=== PATIENT | male | born 1970 | race Caucasian/White ===

== ENCOUNTER → 2018-11-27 14:07 | Outpatient (CLI) | payer OTHER, SELFPAY ==
[2015-06-30 10:02] VITALS: BMI 28.4
[2018-11-27 15:44] LABS: Absolute Lymphocyte Count 2.15 X10^3/ul (0.83-4.51); Absolute Neutrophil Count 3.4 X10^3/uL (2.0-7.7); Basophil# 0.02 X10^3/uL; Basophil% 0.3 % (0-1); Eosinophil# 0.06 X10^3/uL; Hematocrit 43.1 % (40-54); Hemoglobin 14.1 g/dl (13.0-16.5); Lymphocyte # 2.15 X10^3/ul (4.0); Lymphocyte % 34.4 % (19-41); Mean Corp Hgb Conc 32.7 g/gl (32-36); Mean Corpuscular Hgb 30.7 pg (27.0-32.0); Mean Corpuscular Volume 93.9 fL (80-94); Mean Platelet Vol. 10.3 fl (6.2-12.0); Monocyte# 0.62 X10^3/uL; Monocyte% 9.9 % (0-10); Neutrophil # 3.39 X10^3/uL (2.7-7.7); Neutrophil % 54.2 % (47-70); Platelet Count 253 K/mm3 (150-450); RBC Distribution Width CV 12.9 % (11.6-14.6); RBC Distribution Width SD 43.7 fl (35.1-43.9); Red Blood Count 4.59 M/mm3 (4.6-6.2); White Blood Count 6.3 K/mm3 (4.4-11.0)
[2018-11-27 15:47] LABS: POSITIVE COUNT NO; POSITIVE DIFFERENTIAL NO; POSITIVE MORPHOLOGY NO
[2018-11-27 16:18] LABS: ALB/GLOB Ratio 1.4 RATIO (0.9-2.4); AST(SGOT) 11 U/L (15-37); Alanine Aminotransfer ALT/SGPT 25 U/L (16-61); Albumin, Serum 4.3 g/dL (3.2-5.0); Alkaline Phosphatase 64 U/L (45-117); Anion Gap 10 (5-15); BUN 14 mg/dL (7-18); BUN/Creat Ratio 15.9 RATIO (10-20); Chloride 107 mmol/L (98-107); Creatinine, Serum 0.88 mg/dL (0.70-1.30); EST Glomerular Filtration Rate 99 mL/min (>60); Est Glom Filt Rate - Afr Amer 119 mL/min (>60); Glucose 104 mg/dL (74-106); Potassium 3.9 mmol/L (3.5-5.1); Protein, Total 7.3 g/dL (6.4-8.2); Sodium Level 142 mmol/L (136-145); Thyroid Stim Hormone (TSH) 1.21 uIU/mL (0.358-3.74)
[2018-11-27 16:34] LABS: Vitamin B12 509 pg/mL (211-911)
[2018-11-28 09:21] LABS: Hemoglobin A1c 5.6 % (4.2-6.3)
== END ==
PROVIDERS: Family Provider Family Medicine; PCP Family Medicine; Referring Provider Family Medicine; Visit Provider Family Medicine
DX: E55.9 Vitamin D deficiency, unspecified (principal); R73.09 Other abnormal glucose; R53.83 Other fatigue
CPT/HCPCS: 36415; 80053; 82306; 82607; 83036; 84443; 85025

== ENCOUNTER → 2019-07-04 13:39 | Outpatient (CLI) | payer OTHER, SELFPAY ==
[2019-07-04 16:15] LABS: Vitamin D,25 Hydroxy 29.7 ng/mL (29.95-100.01)
== END ==
PROVIDERS: Family Provider Family Medicine; PCP Family Medicine; Referring Provider Family Medicine; Visit Provider Family Medicine
DX: E55.9 Vitamin D deficiency, unspecified (principal)
CPT/HCPCS: 36415; 82306

== ENCOUNTER → 2020-07-15 16:20 | Outpatient (CLI) | payer OTHER, SELFPAY ==
[2015-06-30 10:02] VITALS: BMI 28.4
[2020-07-15 18:05] LABS: Vitamin D,25 Hydroxy 26.6 ng/mL
== END ==
PROVIDERS: PCP Family Medicine; Referring Provider Family Medicine; Visit Provider Family Medicine
DX: E55.9 Vitamin D deficiency, unspecified (principal)
CPT/HCPCS: 36415; 82306

== ENCOUNTER → 2021-09-21 08:13 | Outpatient (CLI) | payer BC, SELFPAY ==
--- NOTE | 2021-09-21 08:17 | RAD_ITS ---
INDICATION: knee pain EXAMINATION/TECHNIQUE: X-RAY - LEFT XR Knee Complete 4 Views or More 8 VIEWS COMPARISON: None. FINDINGS: No evidence of suprapatellar effusion is seen. No abnormal density in the overlying soft tissues. Mild narrowing of the medial joint space, no significant narrowing of the lateral joint space and the patellofemoral joint space. Mild degenerative bone changes visualized, no evidence of cortical irregularity or lucency to suggest a fracture, no evidence of lytic or sclerotic bone lesion is seen. Unremarkable alignment of the patella bone within the trochlear sulcus. RAD/Knee 4 or More Views IMPRESSION: Mild degenerative bone changes, no acute osseous pathology is seen. Electronically Signed: Milan West MD at 10:03 EST Tel , Service support ,
--- NOTE | 2021-09-21 08:18 | RAD_ITS ---
INDICATION: KNEE PAIN EXAMINATION/TECHNIQUE: X-RAY - RIGHT XR Knee Complete 4 Views or More 8 VIEWS COMPARISON: None. FINDINGS: No evidence of suprapatellar effusion is seen. No abnormal density in the overlying soft tissues. Mild narrowing of the medial and lateral joint spaces, no significant narrowing of the patellofemoral joint space is seen. Mild degenerative bone changes visualized, no evidence of cortical irregularity or lucency to suggest a fracture, no evidence of lytic or sclerotic bone lesion is seen. Unremarkable alignment of the patella bone within the trochlear sulcus. RAD/Knee 4 or More Views IMPRESSION: Mild degenerative bone changes, no acute osseous pathology is seen. Electronically Signed: Milan West MD at 10:01 EST Tel , Service support ,
[2021-09-21 10:33] LABS: Vitamin D,25 Hydroxy 20.1 ng/mL
[2021-09-21 10:52] LABS: ALB/GLOB Ratio 1.1 RATIO (0.9-2.4); AST(SGOT) 19 U/L (15-37); Alanine Aminotransfer ALT/SGPT 39 U/L (16-61); Alkaline Phosphatase 58 U/L (45-117); Anion Gap 6 (5-15); BUN 12 mg/dL (7-18); BUN/Creat Ratio 12.1 RATIO (10-20); Calcium,Total 9.4 mg/dL (8.5-10.1); Chloride 107 mmol/L (98-107); Creatinine, Serum 0.99 mg/dL (0.70-1.30); EST Glomerular Filtration Rate 85 mL/min (>60); Est Glom Filt Rate - Afr Amer 103 mL/min (>60); Globulin 3.5 g/dL (2.2-4.2); Glucose 94 mg/dL (74-106); Potassium 4.2 mmol/L (3.5-5.1); Protein, Total 7.5 g/dL (6.4-8.2); Sodium Level 137 mmol/L (136-145)
== END ==
PROVIDERS: PCP Family Medicine; Referring Provider Family Medicine; Visit Provider Family Medicine
DX: M25.569 Pain in unspecified knee (principal); E55.9 Vitamin D deficiency, unspecified
CPT/HCPCS: 36415; 73564; 80053; 82306

== ENCOUNTER 2021-12-09 06:17 | Day surgery (SDC) | payer BC, SELFPAY ==
[2021-12-09] VITALS (10 sets, daily range): BP systolic 132–161; BP diastolic 80–101; PULSE 54–68; RESP 16; TEMP 36.7–36.8; O2SAT 93–99; BMI 28.8
--- NOTE | 2021-12-09 06:57 | PCM.HP.STD ---
HPI - General HPI Narrative CAROLINE CORRAL, is a 51 M who presents for screening colonoscopy. He has never had a previous one. He has no gastrointestinal symptoms. No family history of colon polyps or colon cancer. He otherwise enjoys good health. 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 He has had no history of DVT. [facility] Medical History (Updated 12/07/21 @ 11:50 by Jemma Wood) Alcohol use Arthritis Cardiology follow-up encounter Depression History of echocardiogram History of stress test Hx of cardiac murmur Hx of histoplasmosis Non-smoker Wears glasses Home Medications sertraline [Zoloft] 50 mg PO DAILY 12/07/21 [History Last Taken 12/09/21] Allergy/AdvReac Type Severity Reaction Status Date / Time No Known Allergies Allergy Verified 12/09/21 06:43 Surgical History (Updated 12/07/21 @ 11:50 by Jemma Wood) Hx of hernia repair Hx of sinus surgery Hx of wisdom tooth extraction Social History Smoking Status: Never smoker ROS Constitutional Constitutional: Reports systems reviewed and no addt'l complaints, except as documented Cardiovascular Cardiovascular: Denies chest pain Respiratory/Chest Respiratory/Chest: Denies shortness of breath at rest Gastrointestinal Gastrointestinal: Denies abdominal pain, change in bowel habits, hematochezia or melena Vital Signs Vital Signs Vital Signs: 12/09/21 06:45 Temperature 98.2 F Temperature Source Temporal Pulse Rate 54 L Respiratory Rate 16 Respiratory Pattern Normal Blood Pressure 139/87 H Blood Pressure Mean 104 Blood Pressure Source Monitor Blood Pressure Position Semi-Fowlers Blood Pressure Location Right Arm Pulse Ox 96 Oxygen Delivery Method Room Air Weight Weight: 206 lb 9.17 oz Body Mass Index (BMI) 28.8 Physical Exam Const alert, oriented x3 and no apparent distress General Appearance: cooperative and comfortable Eyes General Eye: normal appearance of both eyes Neck General: normal visual inspection Chest inspection of chest normal Resp Effort and Inspection: able to speak in complete sentences and symmetric chest movement Auscultation: clear to auscultation bilaterally Cardio regular rate and regular rhythm GI soft to palpation, non-tender and non-distended Extremity no calf tenderness Neuro oriented x3 Psych thought process normal Results Lab / Micro Data Micro: Microbiology 12/08/21 08:25 Interface Orders SARS-CoV-2 Antigen (Rapid) - Final Assessment & Plan Assessment/Plan (1) Encounter for screening for malignant neoplasm of colon: PLAN: The patient presents via open access today. Plan to proceed with a screening colonoscopy with possible biopsy or polypectomy as indicated. He is aware of the technique, benefit, risk, alternatives. He has had an opportunity to ask and have questions answered. We will proceed at his discretion. Kaz Christensen M.D., F.A.C.S.
[2021-12-09] MEDS: Lactated Ringers 1,000 ML 30 ML IV (06:59)
[2021-12-09] MEDS: Midazolam 5 MG/ML Syringe (07:15)
--- NOTE | 2021-12-09 07:30 | COLBX_PTH ---
PATIENT: CAROLINE CORRAL LOC: EN U#:[id number] AGE/SX: 51/M ROOM: RE12/09/[address]: Dr. Kaz Christensen MD : 1970 BED: DIS: 12/09/2021 SPEC #: [id number] RECD: 12/09/21 12:24 STATUS: JODY ALEX #: [id number] GIL: 12/09/21 07:[address]: Kaz Christensen DEPT: SURGICAL PATHOLOGY RECD BY: Fanny Hurd ENTERED: 12/09/21 13:19 SP TYPE: COLON BX OTHR DR: Dr. Moi Durham MD Tissues: Cecum, NOS Procedures: Surgery Specimen Level IV HEADER OPERATION: Colonoscopy ? open access (MOD) PRE-OP DIAGNOSIS: Screening TISSUE SUBMITTED: Cecal biopsy MICROSCOPIC DIAGNOSIS Cecal polyp, biopsy: Tubular adenoma. AM:theodora 12/12/2021 MICROSCOPIC DESCRIPTION Slides are reviewed. GROSS DESCRIPTION Received in fixative is one container labeled with the patient's name and designated cecal biopsy. The specimen consists of one irregular fragment of [place] soft tissue that measures 0.6 x 0.5 x 0.1 cm. The specimen is totally submitted in one cassette. / AM:theodora 12/09/2021 TC:5 CPT: 72235
--- NOTE | 2021-12-09 08:06 | OP.COLON_ITS ---
Patient Name: Ramiro Majano Procedure Date: 12/09/2021 7:47 AM Date of : 1970 Age: 51 Procedure: Colonoscopy Indications: Screening for colorectal malignant neoplasm Providers: Kaz Christensen MD Referring MD: Kaz Christensen MD Medicines: Midazolam 5 mg IV, Meperidine 100 mg IV Patient Profile: Last Colonoscopy: none. The patient's first colonoscopy is today. Complications: No immediate complications. Procedure: Pre-Anesthesia Assessment: - Prior to the procedure, a History and Physical was performed, and patient medications and allergies were reviewed. The patient's tolerance of previous anesthesia was also reviewed. The risks and benefits of the procedure and the sedation options and risks were discussed with the patient. All questions were answered, and informed consent was obtained. Prior Anticoagulants: The patient has taken no previous anticoagulant or antiplatelet agents. ASA Grade Assessment: II - A patient with mild systemic disease. After reviewing the risks and benefits, the patient was deemed in satisfactory condition to undergo the procedure. After I obtained informed consent, the scope was passed under direct vision. Throughout the procedure, the patient's blood pressure, pulse, and oxygen saturations were monitored continuously. The pediatric colonoscope was introduced through the anus and advanced to the cecum, identified by appendiceal orifice and ileocecal valve. The colonoscopy was performed without difficulty. The patient tolerated the procedure well. The quality of the bowel preparation was good. The ileocecal valve and the appendiceal orifice were photographed. Moderate Sedation: Moderate (conscious) sedation was personally administered by the endoscopist. The following parameters were monitored: oxygen saturation, heart rate, blood pressure, and response to care. Total physician intraservice time was 15 minutes. Scope In: 7:50:10 AM Scope Withdrawal Time 0 hours 6 minutes 5 seconds Scope Out: 8:01:06 AM Total Procedure Duration Time 0 hours 10 minutes 56 seconds Findings: The perianal and digital rectal examinations were normal. A 3 mm polyp was found in the cecum. The polyp was sessile. The polyp was removed with a cold biopsy forceps. Resection and retrieval were complete. A few diverticula were found in the sigmoid colon. The exam was otherwise without abnormality. Impression: - One 3 mm polyp in the cecum, removed with a cold biopsy forceps. Resected and retrieved. - Diverticulosis in the sigmoid colon. - The examination was otherwise normal. Recommendation: - Discharge patient to home. - Resume previous diet. - Continue present medications. - Repeat colonoscopy in 5 years for surveillance based on pathology results. - Telephone my office for pathology results in 1 week. Procedure Code(s): --- Professional --- 85099, Colonoscopy, flexible; with biopsy, single or multiple 30564, 59, Moderate sedation services provided by the same physician or other qualified health skin care therapist performing the diagnostic or therapeutic service that the sedation supports, requiring the presence of an independent trained observer to assist in the monitoring of the patient's level of consciousness and physiological status; initial 15 minutes of intraservice time, patient age 5 years or older Diagnosis Code(s): --- Professional --- Z12.11, Encounter for screening for malignant neoplasm of colon D12.0, Benign neoplasm of cecum K57.30, Diverticulosis of large intestine without perforation or abscess without bleeding CPT copyright 2017 [employer]. All rights reserved. The codes documented in this report are preliminary and upon treating machine operator review may be revised to meet current compliance requirements. Kaz Christensen MD 12/09/2021 8:05:29 AM This report has been signed electronically. Number of Addenda: 0 Note Initiated On: 12/09/2021 7:47 AM
--- NOTE | 2021-12-09 08:07 | OP.CCLET_ITS ---
12/09/2021 Moi Durham [address] [place] [address] Re : Colonoscopy procedure for Ramiro Majano Dear Dr. Durham This procedure was performed on Thursday, December 09, 2021. My impressions and recommendations are as follows: Impressions : - One 3 mm polyp in the cecum, removed with a cold biopsy forceps. Resected and retrieved. - Diverticulosis in the sigmoid colon. - The examination was otherwise normal. Recommendations : - Discharge patient to home. - Resume previous diet. - Continue present medications. - Repeat colonoscopy in 5 years for surveillance based on pathology results. - Telephone my office for pathology results in 1 week. My findings are described in the full procedure note, which is enclosed. If I can be of further assistance, please feel free to contact me at Doctor phone number(s): Work: . Sincerely, Kaz Christensen MD 12/09/2021 8:05:29 AM This report has been signed electronically.
== END 2021-12-09 23:59 | disposition home or self-care (01) ==
LOC: EN 06:18 → AC 06:20
PROVIDERS: PCP Family Medicine; Referring Provider Surgery; Visit Provider Surgery
PROC: 0DJD8ZZ Inspection of Lower Intestinal Tract, Via Natural or Artificial Opening Endoscopic (ICD-10-PCS; CPT 45378; principal; 2021-12-09 07:25)
DX: Z12.11 Encounter for screening for malignant neoplasm of colon (principal); D12.0 Benign neoplasm of cecum; K57.30 Diverticulosis of large intestine without perforation or abscess without bleeding; F32.A Depression, unspecified; Z79.899 Other long term (current) drug therapy
CPT/HCPCS: 45380; 87426; 88305; 99152; 99153; C9803; J7120

== ENCOUNTER → 2022-06-29 | Outpatient (CLI) | payer BC, SELFPAY ==
[2022-06-29 10:07] LABS: Hematocrit 43.6 % (40-54); Hemoglobin 14.5 g/dL (13.0-16.5); Mean Corp Hgb Conc 33.3 g/dL (32-36); Mean Corpuscular Hgb 31.5 pg (27.0-32.0); Mean Corpuscular Volume 94.6 fL (80-94); Mean Platelet Vol. 9.7 fl (6.2-12.0); Platelet Count 253 K/mm3 (150-450); RBC Distribution Width CV 13.2 % (11.6-14.6); RBC Distribution Width SD 45.7 fl (35.1-43.9); Red Blood Count 4.61 M/mm3 (4.6-6.2); White Blood Count 5.4 K/mm3 (4.4-11.0)
[2022-06-29 10:19] LABS: ALB/GLOB Ratio 1.1 RATIO (0.9-2.4); AST(SGOT) 14 U/L (15-37); Alanine Aminotransfer ALT/SGPT 27 U/L (16-61); Alkaline Phosphatase 51 U/L (45-117); Anion Gap 5 (5-15); BUN 12 mg/dL (7-18); BUN/Creat Ratio 12.8 RATIO (10-20); Calcium,Total 9.2 mg/dL (8.5-10.1); Chloride 106 mmol/L (98-107); Cholesterol 169 mg/dL (200); Creatinine, Serum 0.94 mg/dL (0.70-1.30); EST Glomerular Filtration Rate 90 mL/min (>60); Est Glom Filt Rate - Afr Amer 109 mL/min (>60); Globulin 3.6 g/dL (2.2-4.2); Glucose 95 mg/dL (74-106); High Density Lipoprotein 35 mg/dL; Potassium 4.2 mmol/L (3.5-5.1); Protein, Total 7.6 g/dL (6.4-8.2); Sodium Level 139 mmol/L (136-145); Triglycerides 118 mg/dL; Very Low Density Lipoprotein 24 mg/dL (5-40)
[2022-06-29 10:34] LABS: Vitamin D,25 Hydroxy 35.4 ng/mL
== END | disposition home or self-care (01) ==
LOC: MFPLAB 08:47
PROVIDERS: PCP Family Medicine; Referring Provider Family Medicine; Visit Provider Family Medicine
DX: Z00.00 Encounter for general adult medical examination without abnormal findings (principal); E55.9 Vitamin D deficiency, unspecified
CPT/HCPCS: 36415; 80053; 80061; 82306; 85027

== ENCOUNTER 2023-09-12 09:26 | Outpatient (CLI) | payer BC, SELFPAY ==
[2023-09-12 10:21] LABS: Absolute Lymphocyte Count 2.22 X10^3/uL (0.83-4.51); Absolute Neutrophil Count 3.6 X10^3/uL (2.0-7.7); Basophil# 0.02 X10^3/uL; Basophil% 0.3 % (0-1); Eosinophil# 0.06 X10^3/uL; Eosinophils% 0.9 % (0-5); Hematocrit 44.8 % (40-54); Hemoglobin 15.2 g/dL (13.0-16.5); Lymphocyte # 2.22 X10^3/ul (0.83-4.51); Lymphocyte % 34.6 % (19-41); Mean Corp Hgb Conc 33.9 g/dL (32-36); Mean Corpuscular Hgb 32.1 pg (27.0-32.0); Mean Corpuscular Volume 94.7 fL (80-94); Mean Platelet Vol. 9.2 fl (6.2-12.0); Monocyte# 0.51 X10^3/uL; NRBC Flagged by Analyzer 0 % (0-5); Neutrophil # 3.58 X10^3/uL (2.7-7.7); Neutrophil % 55.9 % (47-70); Platelet Count 277 K/mm3 (150-450); RBC Distribution Width CV 13.2 % (11.6-14.6); RBC Distribution Width SD 46.5 fl (35.1-43.9); Red Blood Count 4.73 M/mm3 (4.6-6.2); White Blood Count 6.4 K/mm3 (4.4-11.0)
[2023-09-12 10:46] LABS: Vitamin D,25 Hydroxy 21.1 ng/mL
[2023-09-12 11:17] LABS: ALB/GLOB Ratio 1.2 RATIO (0.9-2.4); AST(SGOT) 22 U/L (15-37); Alanine Aminotransfer ALT/SGPT 48 U/L (16-61); Albumin, Serum 4.2 g/dL (3.2-5.0); Alkaline Phosphatase 57 U/L (45-117); Anion Gap 4 (5-15); BUN 11 mg/dL (7-18); BUN/Creat Ratio 11.9 RATIO (10-20); Calcium,Total 9.2 mg/dL (8.5-10.1); Chloride 105 mmol/L (98-107); Cholesterol 225 mg/dL (200); Creatinine, Serum 0.92 mg/dL (0.70-1.30); EST Glomerular Filtration Rate 91 mL/min (>60); Est Glom Filt Rate - Afr Amer 110 mL/min (>60); Globulin 3.5 g/dL (2.2-4.2); Glucose 98 mg/dL (74-106); High Density Lipoprotein 37 mg/dL; Potassium 4.2 mmol/L (3.5-5.1); Protein, Total 7.7 g/dL (6.4-8.2); Sodium Level 136 mmol/L (136-145); Triglycerides 200 mg/dL; Very Low Density Lipoprotein 40 mg/dL (5-40)
== END 2023-09-12 23:59 | disposition home or self-care (01) ==
LOC: MFPLAB 09:26
PROVIDERS: PCP Family Medicine; Visit Provider Family Medicine
DX: E55.9 Vitamin D deficiency, unspecified (principal); R03.0 Elevated blood-pressure reading, without diagnosis of hypertension; Z91.89 Other specified personal risk factors, not elsewhere classified
CPT/HCPCS: 36415; 80053; 80061; 82306; 85025

== ENCOUNTER 2023-12-12 05:54 | Day surgery (SDC) | payer BC, SELFPAY ==
--- NOTE | 2023-12-12 06:10 | EKG12_ITS ---
Test Reason : PRE-OP Blood Pressure : / mmHG Vent. Rate : 056 BPM Atrial Rate : 056 BPM P-R Int : 166 ms QRS Dur : 086 ms QT Int : 388 ms P-R-T Axes : 031 047 059 degrees QTc Int : 374 ms Sinus bradycardia Otherwise normal ECG No previous ECGs available Confirmed by Renny Ignacio ([id number]), development editor NETO DAVIS ([id number]) on 12/14/2023 8:39:24 AM Referred By: Marbin Tomlinson Confirmed By:Renny Ignacio
[2023-12-12 06:28] VITALS: BP 131/88; PULSE 61; RESP 16; TEMP 37.2; O2SAT 97; BMI 29.5
[2023-12-12] MEDS: Lactated Ringers 1,000 ML 15 ML IV (06:41)
--- NOTE | 2023-12-12 06:45 | PCM.HP.BLA ---
History and Physical Date of Admission: 12/12/23 Intake Vital Signs 12/09/2205:45 11/26/2407:32 Height 5 ft 11 in 5 ft 11 in Weight: 217 lb BMI 30.2 BP 139/88 H Blood Pressure Location Rt brachial Position Sitting Respiration 16 Intake Visit Reasons: Umbilical Hernia Chief Complaint: umbilical hernia Attendant Honor Bar Required: No Is patient in pain?: Yes (umbilicus) Allergies amphotericin B Allergy (Mild, Verified 11/26/23 08:33) Other Medications sertraline 50 mg tablet (Zoloft) 50 mg PO DAILY 12/07/21 [History Confirmed 12/09/21] ergocalciferol (vitamin D2) 1,250 mcg (50,000 unit) capsule PO 11/26/23 [History Confirmed 11/26/23] PFSH Medical History Alcohol use Arthritis Cardiology follow-up encounter Depression History of echocardiogram History of stress test Hx of cardiac murmur Hx of histoplasmosis Non-smoker Wears glasses Surgical History Hx of hernia repair Hx of sinus surgery Hx of wisdom tooth extraction Family History (Updated 11/26/23 @ 08:32 by Rosa Briscoe) Father Cancer Social History (Updated 11/26/23 @ 08:32 by Rosa Briscoe) Smoking Status: Never smoker alcohol intake: current HPI HPI HPI: Patient is a 53-year-old male here with a small umbilical hernia. Patient would like it repaired before he gets too large and require mesh. Patient reports no nausea or vomiting. He is having some pain in the area. This been going on for couple weeks. ROS General General: No weight change, appetite, fatigue, colon cancer, breast cancer or weakness HEENT HEENT: No difficulty swallowing, eye injury, eye surgery, swollen glands or hoarseness Endo Endocrine: No thyroid disease, diabetes mellitus, thyroid cancer, Hair loss, heat intolerance or cold intolerance Skin Skin: No rash or changing moles Breast Breast: No left breast lump, right breast lump, nipple discharge, breast pain, abnormal mammogram, abnormal US or breast enlargement Musc Musculoskeletal: No back problems, arthritis, rheumatoid arthritis, gout or joint pain Cardio Cardiovascular: Yes murmur; No pacemaker, heart disease, atrial fibrillation, high blood pressure, heart attack, heart stent, palpitations, shortness of breat with exertion or chest pain Psych Psychiatric: No depression, anxiety or hearing voices Resp Respiratory: No shortness of breath, No sleep apnea, No cough, No COPD, No asthma, No emphysema and No wheezing Gastro Gastrointestinal: No abdominal pain, No nausea or vomiting, No diarrhea, No constipation, No blood in stool, No acid reflux, No hemorrhoids, No ulcers, No gallbladder problem and No black,tarry stools Sriram Hematologic: No blood thinners, No blood disorders, No bleeding, No anemia and No blood clots Neuro Neurologic: No system reviewed and no additional complaints, except as documented, No as per HPI, No abnormal gait, No abnormal hearing, No abnormal movements, No abnormal speech, No behavioral changes, No burning sensations, No confusion, No convulsions, No disequilibrium, No dizziness, No localized weakness, No frequent falls, No headache(s), No lack of coordination, No loss of vision, No memory loss, No numbness, No other visual disturbances, No radicular pain, No restless legs, No sensory deficit, No syncope, No tingling, No tremor(s), No weakness and No other Exam Const General: cooperative Orientation: alert and oriented x3 HENMT Head: normal to inspection Neck Neck: normal visual inspection and full ROM Chest Chest palpation & inspection: normal inspection of the chest Resp Effort & Inspection: normal respiratory effort Auscultation: clear to auscultation bilaterally Cardio Rate: regular rate Rhythm: regular rhythm GI Inspection: non-distended Palpation: soft, hernia umbilical and nontender Skin General: no rashes or lesions noted Neuro General: patient alert and patient oriented x3 Extrem General: full ROM Psych Appearance: grossly normal Mental Status: mental status grossly normal Assessment and Plan Assessment and Plan (1) Umbilical hernia: Status: Acute Qualifiers: Obstruction and gangrene presence: without obstruction or gangrene Qualified Code(s): K42.9 - Umbilical hernia without obstruction or gangrene Plan: The patient has a reducible umbilical hernia which is causing him pain but he would like it repaired before he gets large enough that he would need mesh. I discussed suture repair with him in detail. I discussed that if the hernia was over a centimeter in diameter I would recommend mesh but the patient would like to avoid if possible. I discussed the risks including but not to bleeding, infection, injury underlying organs such as bowel or fat. Patient understands the risks and is willing to proceed. Marbin Tomlinson MD Pager: [facility] [address] [place] [address], [address] [place] [address] Office: I have examined the patient and the H&P has been reviewed. There are no clinical changes since date of exam.
[2023-12-12] MEDS: Cefazolin 2 GM in 0.9% Normal Saline (100mL Bag) 100 ML IV (07:19)
[2023-12-12] MEDS: Lidocaine 1% (20 ml mdv) 20 ML Vial (07:33)
[2023-12-12] MEDS: Bupivacaine Mpf 0.5% 30 ML VIAL (07:33)
[2023-12-12 07:50] VITALS: BP 131/88; BP 176/103; PULSE 82; RESP 16; TEMP 36.8; O2SAT 99
--- NOTE | 2023-12-12 07:50 | PCM.OPRPT ---
Report of Operation Date of Procedure: 12/12/23 Pre-Operative Diagnosis: Umbilical hernia less than 3 cm Post-Operative Diagnosis: Same Surgery/Procedure Performed:: Umbilical hernia repair less than 3 cm Type of Anesthesia: Local MAC Estimated Blood Loss (mL): 2 Description of Procedure: Patient was brought back to the operating room and MAC anesthesia was induced. The abdomen was prepped and draped in usual sterile fashion. A curvilinear incision was marked superior to the umbilicus and then injected with local anesthetic. Incision was made with a scalpel and deepened to the fascia. The hernia was dissected free from the umbilical stalk sharply and then the small amount of fat in the hernia was reduced. The hernia defect measured less than 1 cm. An 0 Nurolon suture was used to reapproximate the diastases superior to the hernia to reduce tension. There was another 2 interrupted 0 Nurolon sutures used to close the hernia defect. The area was irrigated and suctioned dry and hemostasis was obtained using electrocautery. The skin was reapproximated using interrupted 3-0 Vicryl sutures. Steri-Strips and bandages were applied. Patient was awoken and brought to PACU in stable condition and tolerated the procedure well. Grafts/Implants Used: No mesh used Admit VTE Documentation VTE Mechan Device Prophylaxis: SCD's
--- NOTE | 2023-12-12 07:52 | DCINST_ITS ---
Discharge Instructions Procedure Hernia Diet Discharge Diet: Light diet - advance as tolerated Activity Discharge Activity: May Not Drive (for 2-3 days) and May Shower (with the bandage in place 1-2 days after surgery.) Lifting Restrictions: 15 pounds for 2 weeks. Additional Activity Instructions:: Climbing stairs is fine, walking is encouraged. Sitting in bed may be uncomfortable. Sitting up using your lateral muscles (sitting up sideways) is usually more comfortable. Do not drive, work heavy equipment of sign legal documents for 24 hours. Alternate ibuprofen and Tylenol for pain control. If these are not controlling the pain please call my office. Dressing / Incision Call your doctor if your incision/area has: Continuous Slow Oozing, Sudden Increased Bleeding, Increased Pain/ Swelling, Increased Redness and Foul Smelling Discharge Call your doctor if you observe: Fever of 101 or Higher Suture Line Care: Avoid Pulling/Pushing and Avoid Pinching/Bending Remove Dressing in: 2 days (Remove clear bandages in 2 days, remove Steri-Strips in 7 to 10 days.) Follow Up Care Please Follow Up With: Marbin Tomlinson MD When: Please call to schedule 2 week follow up appointment. [phone] Test Results: Test results from this visit will be discussed in further detail at your follow- up appointment, if applicable. Discharge Plan Admission Attending Provider: Marbin Tomlinson Primary Care Provider: Moi Durham Discharge Orders/Prescriptions Prescriptions: No Action sertraline [Zoloft] 50 mg Tablet 50 mg PO DAILY loratadine [Allergy Relief (loratadine)] 10 mg tablet 10 mg PO DAILY PRN (Reason: allergic symptoms) Referrals / Follow Up: Moi Durham MD [Primary Care Provider] - Disposition Disposition (needs filled in before D/C Order can be placed): Home, Self Care
[2023-12-12 07:55] VITALS: BP 131/88; BP 180/98; PULSE 82; RESP 16; O2SAT 99
[2023-12-12 08:00] VITALS: BP 131/88; BP 158/102; PULSE 79; RESP 16; O2SAT 95
[2023-12-12 08:05] VITALS: BP 131/88; BP 147/97; PULSE 78; RESP 16; TEMP 37.1; O2SAT 98
[2023-12-12 08:56] VITALS: BP 131/88
== END 2023-12-12 09:04 | disposition home or self-care (01) ==
LOC: SDC 05:55 → AC 05:55
PROVIDERS: PCP Family Medicine; Referring Provider Surgery; Visit Provider Surgery
PROC: (CPT 49591; principal; 2023-12-12 07:15)
DX: K42.9 Umbilical hernia without obstruction or gangrene (principal); F98.8 Other specified behavioral and emotional disorders with onset usually occurring in childhood and adolescence; Z86.19 Personal history of other infectious and parasitic diseases
CPT/HCPCS: 49591; 93005; J7120; J2405

== ENCOUNTER → 2024-03-07 | Outpatient (CLI) | payer BC, SELFPAY ==
[2024-03-07 13:14] LABS: ALB/GLOB Ratio 1.3 RATIO (0.9-2.4); AST(SGOT) 15 U/L (15-37); Alanine Aminotransfer ALT/SGPT 26 U/L (16-61); Albumin, Serum 4.2 g/dL (3.2-5.0); Alkaline Phosphatase 58 U/L (45-117); Anion Gap 9 (5-15); BUN 12 mg/dL (7-18); BUN/Creat Ratio 14.6 RATIO (10-20); Calcium,Total 9.4 mg/dL (8.5-10.1); Chloride 106 mmol/L (98-107); Creatinine, Serum 0.82 mg/dL (0.70-1.30); EST Glomerular Filtration Rate 104 mL/min (>60); Est Glom Filt Rate - Afr Amer 126 mL/min (>60); Globulin 3.2 g/dL (2.2-4.2); Glucose 89 mg/dL (74-106); Potassium 4.4 mmol/L (3.5-5.1); Protein, Total 7.4 g/dL (6.4-8.2); Sodium Level 138 mmol/L (136-145)
[2024-03-07 14:02] LABS: Vitamin D,25 Hydroxy 47.2 ng/mL
== END | disposition home or self-care (01) ==
LOC: MFPLAB 09:37
PROVIDERS: PCP Family Medicine; Visit Provider Family Medicine
DX: E55.9 Vitamin D deficiency, unspecified (principal)
CPT/HCPCS: 36415; 80053; 82306

== ENCOUNTER → 2025-03-26 | Outpatient (CLI) | payer BC, SELFPAY ==
[2025-03-26 18:48] LABS: AST(SGOT) 20 U/L (<=37); Alanine Aminotransfer ALT/SGPT 19 U/L (<=46); Albumin, Serum 4.4 g/dL (3.5-5.0); Alkaline Phosphatase 54 U/L (40-129); Anion Gap 11 (5-15); BUN 14 mg/dL (4-19); BUN/Creat Ratio 16.0 RATIO (10-20); Calcium,Total 9.3 mg/dL (7.6-11.0); Carbon Dioxide 21.6 mmol/L (21.0-32.0); Chloride 104 mmol/L (98-108); Globulin 2.7 g/dL (2.2-4.2); Glucose 79 mg/dL (70-99); Potassium 3.9 mmol/L (3.3-5.1); Vitamin D,25 Hydroxy 44.1 ng/mL (30-100)
== END | disposition home or self-care (01) ==
LOC: MFPLAB 15:28
PROVIDERS: PCP Family Medicine; Referring Provider Family Medicine; Visit Provider Family Medicine
DX: E55.9 Vitamin D deficiency, unspecified (principal)
CPT/HCPCS: 36415; 80053; 82306

== ENCOUNTER → 2025-09-23 | Outpatient (CLI) | payer BC, SELFPAY ==
[2025-09-23 17:54] LABS: AST(SGOT) 22 U/L (<=37); Alanine Aminotransfer ALT/SGPT 31 U/L (<=46); Albumin, Serum 4.5 g/dL (3.5-5.0); Alkaline Phosphatase 60 U/L (40-129); Anion Gap 11 (7-18); BUN 13 mg/dL (4-19); BUN/Creat Ratio 14.2 RATIO (10-20); Calcium,Total 9.9 mg/dL (7.6-11.0); Carbon Dioxide 24.8 mmol/L (20.0-29.0); Chloride 102 mmol/L (96-106); Globulin 3.2 g/dL (2.2-4.2); Glucose 76 mg/dL (70-99); PSA,Total - Annual Screen 1.06 ng/mL (0.02-4.00); Potassium 4.4 mmol/L (3.5-5.1); Vitamin D,25 Hydroxy 36.2 ng/mL (30-100)
== END | disposition home or self-care (01) ==
LOC: MFPLAB 11:37
PROVIDERS: PCP Family Medicine; Visit Provider Family Medicine
DX: Z12.5 Encounter for screening for malignant neoplasm of prostate (principal); E55.9 Vitamin D deficiency, unspecified
CPT/HCPCS: 36415; 80053; 82306; 84153; G0103